=== PATIENT | female | born 1950 | race Caucasian/White ===

== ENCOUNTER → 2016-06-16 13:46 | Outpatient (CLI) | payer MEDICARE, BC | END | disposition home or self-care (01) | LOC: D.US 13:46 → D.RAD 14:30 | DX: K21.9 Gastro-esophageal reflux disease without esophagitis (principal) ==

== ENCOUNTER → 2016-06-23 09:44 | Outpatient (CLI) | payer MEDICARE, BC ==
[2016-06-23 11:21] LABS: HEMATOCRIT 35.9 % (36.0-48.0)
== END | disposition home or self-care (01) ==
LOC: D.CT 09:44
PROVIDERS: Surgery
DX: K21.9 Gastro-esophageal reflux disease without esophagitis (principal); R10.9 Unspecified abdominal pain

== ENCOUNTER → 2016-07-05 09:56 | Outpatient (CLI) | payer MEDICARE, BC | END | disposition home or self-care (01) | LOC: D.MRI 09:56 | DX: K44.9 Diaphragmatic hernia without obstruction or gangrene (principal); R10.9 Unspecified abdominal pain ==

== ENCOUNTER 2016-08-02 05:35 | Inpatient (IN) | payer MEDICARE, BC ==
[2016-08-01 12:06] LABS: BASOPHILS 0.5 % (0-2); EOSINOPHILS 0.8 % (0-7); HEMOGLOBIN 12.5 g/dL (12-16); IMMATURE GRANULOCYTES 0.2 % (0-5); LYMPHOCYTES 18.5 % (15-50); MCH 27.2 pg (26.0-34.0); MCHC 32.1 g/dL (31.0-37.0); MEAN PLATELET VOLUME 10.4 fL (7.4-10.4); MONOCYTES 6.7 % (2-11); NEUTROPHILS 73.3 % (40-80); PLATELET COUNT 216 10x3/uL (130-400); RBC 4.59 10x6/uL (4.00-5.40); RDW 16.6 % (11.5-14.5)
[2016-08-01 12:18] LABS: APTT 25.9 SECONDS (22.8-39.4); INR 0.99 (0.85-1.17); PROTIME 12.9 SECONDS (11.6-15.0)
[2016-08-01 12:31] LABS: ANION GAP 10.6 mmol/L (8-16); CALCIUM 8.9 mg/dL (8.5-10.1); CARBON DIOXIDE 30.9 mmol/L (21.0-32.0); POTASSIUM - SERUM 4.5 mmol/L (3.5-5.1)
[~2016-08-02] VITALS: Ht 157.5 cm; Wt 68.0 kg
[~2016-08-02 05:35] MED LIST: FERGON 240 MG240 MG PO; MELATONIN5 MG PO; PEPCID40 MG PO; PROTONIX40 MG PO
[2016-08-02 06:26] VITALS: BP 140/75; BMI 27.5
--- NOTE | 2016-08-02 09:27 | NUR ---
THROMBIN LOT [id number] EXP 06/2018 FOR BOTH
[2016-08-02 12:30] VITALS: BP 128/59
--- NOTE | 2016-08-02 12:32 | NUR ---
RECIEVED TOR OOM 2238 PER BED WITH POST OP RECOVERY NURSE VITAL SIGNS STABLE FENTNYL EPIDURAL IN PLACE 8MCG/HR CONTINUOUUS INFUSION. DRESSING TO SURGICAL INCISION ONPLACE WITH SCANT AMOUNT OF BLOODY DRAINAGE NOTED NGT TO LEFT NARE TO LIWS. SCANT AMOUNT OF FLUID IN TUBING. MAZA CATHETER PATENT TO CLEAR YELLOW URINE TO GRAVITY FLOW. PT ON CONTINUOUS O2 MONITOR. WILL MONITOR CLOSELY
[2016-08-02 16:16] VITALS: BP 155/72; BMI 27.5
--- NOTE | 2016-08-02 18:00 | NUR ---
NEW ORDER RECIEVED FOR DILAYILAUDID LIQUOR RECTIFIER INITIATED WITH [address]NESS PER ORDER [address] ART. CALLED HOUSE SUPERVISIOR FOR ECO2 MONITOR ATTACHMENT
[2016-08-02 19:00] VITALS: BP 157/74
--- NOTE | 2016-08-02 20:30 | NUR ---
AROUSES TO VERBAL STIMULI. ALERT ORIENTED. NG TO LEFT NARE PATENT TO LOW SUCTION.ABD INCISION INTACT WITHOUT DRAINAGE NOTED.IV TO RIGHT WRIST INTACT WITHOUT REDNESS OR EDEMA NOTED.EPIDURAL AND MANAGER CASH DILAUDID IN USE FOR PAIN CONTROL. CL IN REACH
--- NOTE | 2016-08-03 03:06 | NUR ---
RESTING QUIETLY. NO DISTRESS NOTED.
[2016-08-03 04:00] VITALS: BP 140/73
--- NOTE | 2016-08-03 05:28 | NUR ---
no change in assessment. cl in reach
--- NOTE | 2016-08-03 07:00 | NUR ---
AWAKE AND ALERT WITH RESPRIATIONS EVEN AND NON LABORED. OXYGEN SATURATION 97% ON 2L VIA NC. DENIES NEEDS AT HTIS TIME. WILL CONTINUE WITH PLAN OF CARE.
--- NOTE | 2016-08-03 07:24 | NUR ---
Patient Name: ESAU ALCANTARA Admission Status: Elective Accout number: [id number] Admission Date: 08-02-2016 : 1950 Admission Diagnosis: Attending: ZARI Current LOS: 1 Anticipated DC Date: 08-05-2016 Planned Disposition: Home Primary Insurance: MEDICARE A & B Discharge Planning Comments: CM MET WITH PATIENT AND SPOUSE (DARRELL) REGARDING D/C NEEDS AND PLANS. PATIENT STATED HER SPOUSE WILL DRIVE HER HOME AT DISCHARGE AND THERE ARE NO STEPS TO ENTER HOME AND NO STAIRS INSIDE. PATIENT STATED SHE IS INDEPENDENT WITH HER CARE AND HAS NO DME AT HOME. PATIENTS PCP IS DR. SUNSHINE AND USES [facility] IN [place]. PATIENT HAS NOT HAD HOME HEALTH AND DOES NOT WANT IT. CM WILL CONTINUE TO FOLLOW PATIENT WITH D/C NEEDS AND PLANS. PCP [facility]- [phone] DARRELL (SPOUSE) [phone] Ribbon Cutter: Deana Tobin Is the patient Alert and Oriented? Yes 0 * How many steps to enter\exit or inside your home? 0 0 * PCP DR. SUNSHINE 0 * [facility]acy [facility] * Preadmission Environment Home with Family 0 * ADLs Independent 0 * Equipment None 0 * List name and contact numbers for known caregivers / representatives who currently or will assist patient after discharge: DARRELL (SPOUSE) [phone] 0 * Community resources currently utilized None 0 * Additional services required to return to the preadmission environment? Yes 0 * Can the patient safely return to the preadmission environment? Yes 0 * Has this patient been hospitalized within the prior 30 days at any hospital? No 0 Grand Total: 0
[2016-08-03 07:57] VITALS: BP 149/71
--- NOTE | 2016-08-03 09:32 | NUR ---
SCHEDULED MEDICATIONS ADMINISTERED AT THIS TIME. IV TO RIGHT HAND PATENT. DRESSING TO MIDLINE UPPER ABDOMEN INTACT. EPIDURAL PATENT AND POLYSOM TECH IN USE FOR PAIN. PT IS ABLE TO MOVE AND FEEL IN LOWER EXTREMETIES, BUT PAIN IS TOLERABLE. SCD'S ON AND IN WORKING ORDER. MAZA PATENT AND DRAINING TO GRAVITY. OXYGEN ON 2L VIA NC WITH OXYGEN SATURATION 97%. DENIES NEEDS AT THIS TIME. NG TUBE PATENT WITH DARK BROWN/RED DRAINAGE TO LOW INTERMITTENT WALL SUCTION. WILL CONTINUE WITH PLAN OF CARE. SPOUSE AT BEDSIDE.
--- NOTE | 2016-08-03 10:00 | NUR ---
TAKEN FOR GASTROGRAF AT THIS TIME. NG TUBE CLAMPED. WILL MONITOR PT WHEN SHE RETURNS TO ROOM 2238.
[2016-08-03 11:51] VITALS: BP 134/68
--- NOTE | 2016-08-03 12:16 | NUR ---
NUTRITION MONITORING & EVAL RECEIVED CONSULT FOR [employer], an [employer]/LITERATURE FOR PT. PT EATING ICE CHIPS, SPOUSE AT BEDSIDE. DISCOURAGED STRAWS/CARBONATED DRINKS. ENCOURAGED PT TO READ GUIDELINES AND COMPLY. PT VOICED UNDERSTANDING. RD FOLLOWING
[2016-08-03 15:37] VITALS: BP 126/60
[2016-08-03 19:00] VITALS: BP 139/64
--- NOTE | 2016-08-03 20:45 | NUR ---
AWAKE,ALERT. NO COMPALINTS VOICED.EPIDUAL INTACT FOR PAIN CONTROL.AUTO HAULAWAY DRIVER DILAUDID IN USE. IV INFUSING TO RIGHT ARM WIHTOUT REDNESS OR EDEMA..MIDLINE ABD DRESSING INTACT WITHOUT DRAINAGE NOTED. MAZA PATENT AND DRAINING MICHAEL URINE. CL IN REACH
--- NOTE | 2016-08-04 01:26 | NUR ---
RESTING WITH EYES CLOSED, NO DISTRESS NOTED, FALL PRECAUTIONS IN PLACE, CL IN REACH
[2016-08-04 04:00] VITALS: BP 135/59
--- NOTE | 2016-08-04 07:30 | NUR ---
AWAKE AND ALERT AT THIS TIME. PAIN 5/10. BULLET LUBRICATING MACHINE OPERATOR AND EPIDURAL IN USE FOR PAIN MANAGEMENT. INCENTIVE SPIROMETER IN USE. BOWEL SOUNDS HYPOACTIVE X4. DRESSING C/D/I. SCD'S ON AND IN WORKING ORDER. CALL LIGHT IN REACH, WILL CONTINUE WITH PLAN OF CARE.
[2016-08-04 08:04] VITALS: BP 146/64
--- NOTE | 2016-08-04 10:40 | NUR ---
IV ACCESS-20 GAUGE INSERTED IN RIGHT HAND. PREVIOUS IV REMOVED WITH CATH INTACT DUE TO SITE LEAKING. JON MORIN RN
--- NOTE | 2016-08-04 10:55 | NUR ---
UP TO THE CHAIR WITH PHYSICAL THERAPY ASSISTANCE AT THIS TIME. DR GELLER IN ROOM D/C EPIDURAL. OXYGEN, ETCO2 AND CONTINUOUS PULSE OX D/C WELL. NOTIFIED PHARMACY THAT EPIDURAL WAS D/C SO THAT LOVENOX COULD BE RESTARTED WHEN APPROPRIATE. OXYGEN SATURATION 98% ON ROOM AIR. QUARTER SUPERVISOR IN USE FOR PAIN CONTROL. PERSONAL BELONGINGS IN REACH. AT BEDSIDE. WILL CONTINUE WITH PLAN OF CARE.
--- NOTE | 2016-08-04 11:30 | NUR ---
BATH PROVIDED WITH MODERATE ASSISTANCE WHILE PT UP IN CHAIR. MAZA CARE PROVIDED WELL AND STAT LOCK REPLACED. REMAINS UP IN CHAIR AT THIS TIME WITH BATTERY REPAIRER IN USE. ASSISTED PT WITH BRUSHING TEETH, DEODORANT, AND NON WASH HAIR CAP. DENIES FURTHER NEEDS, REMAINS IN CHAIR. CALL LIGHT IN REACH. WILL CONTINUE WITH PLAN OF CARE.
[2016-08-04 12:08] LABS: BASOPHILS 0.1 % (0-2); EOSINOPHILS 0.3 % (0-7); HEMATOCRIT 31.7 % (36.0-48.0); HEMOGLOBIN 9.8 g/dL (12-16); IMMATURE GRANULOCYTES 0.1 % (0-5); LYMPHOCYTES 13.4 % (15-50); MCH 26.8 pg (26.0-34.0); MCHC 30.9 g/dL (31.0-37.0); MCV 86.6 fL (80.0-100.0); MEAN PLATELET VOLUME 10.6 fL (7.4-10.4); MONOCYTES 8.8 % (2-11); NEUTROPHILS 77.3 % (40-80); PLATELET COUNT 178 10x3/uL (130-400); RBC 3.66 10x6/uL (4.00-5.40); WBC 7.9 10x3/uL (4.8-10.8)
[2016-08-04 12:15] LABS: ALBUMIN 2.5 g/dL (3.4-5.0); ALKALINE PHOSPHATASE 47 U/L (46-116); ALT (SGPT) 51 U/L (10-68); CALC OSMOLALITY 275 mosm/kg (275-300); CALCIUM 8.1 mg/dL (8.5-10.1); CARBON DIOXIDE 31.1 mmol/L (21.0-32.0); CHLORIDE - SERUM 103 mmol/L (98-107); CREATININE - SERUM 0.8 mg/dL (0.6-1.3); GLUCOSE 88 mg/dL (74-106); MAGNESIUM - SERUM 1.7 mg/dL (1.8-2.4); PHOSPHOROUS 2.6 mg/dL (2.5-4.9); POTASSIUM - SERUM 3.7 mmol/L (3.5-5.1); PROTEIN - SERUM 5.7 g/dL (6.4-8.2); SODIUM 139 mmol/L (136-145); UREA NITROGEN 10 mg/dL (7-18); eGFR NON AFRICAN AMERICAN 76 mL/min (90-120)
[2016-08-04 12:26] VITALS: BP 136/68
--- NOTE | 2016-08-04 12:45 | NUR ---
ASSISTED PT BACK TO BED AT THIS TIME X2 ASSIST. MAZA REMAINS PATENT AND DRAINING TO GRAVITY. HOTEL MAINTENANCE ENGINEER IN USE FOR PAIN. AT BEDSIDE. WILL CONTINUE WITH PLAN OF CARE.
--- NOTE | 2016-08-04 13:00 | OP ---
PATIENT NAME: ESAU PICKARD MEDICAL RECORD: [id number] :[birth year] LOCATION:[id number] ADMISSION DATE:08/02/16 SURGEON: ROSA KURTZ MD DATE OF OPERATION: 08/02/2016 REFERRING PHYSICIAN: Dr. Jazmine Lancaster of [employer] and Dr. Ronak Olivia of [facility]. PREOPERATIVE DIAGNOSIS: Large paraesophageal hernia causing obstructive symptoms and gastric ulcerations and hemangioma of the liver and cholelithiasis with chronic cholecystitis. POSTOPERATIVE DIAGNOSIS: Large paraesophageal hernia causing obstructive symptoms and gastric ulcerations and hemangioma of the liver and cholelithiasis with chronic cholecystitis. 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 SURGEON: Rosa Kurtz MD ANESTHESIA: Per DATA WAREHOUSE MANAGER, epidural for intraoperative and postoperative care and postoperative pain relief and general endotracheal anesthesia. PREOPERATIVE NOTE: Ms. Pickard is a very nice 66-year-old white female who has a symptomatic paraesophageal hernia and has had problems with gastric ulcerations and GI bleeding and iron deficiency anemia. Her ulcers are believed to be healed at the present time and she is brought to the operating room to be admitted today for an open repair of paraesophageal hernia. She was found on her preoperative workup to have cholelithiasis and believed to have chronic cholecystitis and as a result. 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 She has had prior surgery, a small bowel resection for what proved to be Crohn's disease a number of years ago and has a well-healed lower midline abdominal incision. PROCEDURE IN DETAIL: Under general endotracheal anesthesia with an epidural for intraoperative and postoperative narcotic administration, the patient was prepped and draped in supine position. The Stauffer catheter was utilized. A midline incision was made and hemostasis obtained with electrocautery. Intra-abdominal enterolysis was performed and a Bookwalter retractor was used for exposure. The patient was found to have a tumor on the inferior aspect of the lateral segment of the left lobe of the liver, which obstructed the view of the esophageal hiatus and so we went on to resect the liver lesion. This was done with Harmonic scalpel with a few clips and Vicryl ligatures and 2-0 Nurolon sutures and 2-0 Vicryl sutures used for hemostasis. The tumor was removed in toto though with the narrow margin, it was sent to pathology for permanent section histology. The stomach was then reduced by traction and the peritoneum and gastrophrenic ligament was divided with the harmonic kentrell. The sac was reduced from the mediastinum and resected and the right and left radha of the diaphragm clearly defined and the anterior and posterior vagus nerve trunks were identified. A clear space posterior to the esophagus was created through which to pass the Roger wrap and a Cayuta drain was used to retract through that OPERATIVE REPORT [id number] ESAU PICKARD. During the dissection, a splenic capsular avulsion occurred and hemostasis was obtained there with the use of dry gauze packing and topical Fibrillar hemostatic oxidized cellulose and the use of thrombin. The greater curvature of the stomach was completely mobilized using the Harmonic scalpel and I was able to demonstrate a loose and floppy wrap could be made around posterior to the esophagus and posterior to the posterior vagus nerve. I performed the crural repair at this point, approximating the right and left radha with interrupted simple 0 Nurolon sutures and then reinforced the closure with a Bantam Bio-A absorbable prosthetic mesh. This reinforced the posterior crural closure and came up around the sides of the esophagus leaving the anterior one-fourth of the circumference of the esophagus open on that aspect of the diaphragm. The fundoplication was then performed after a 40-Angolan bougie was inserted per os and advanced easily into the stomach. I performed the fundoplication over this bougie and demonstrated a loose and floppy wrap. I sutured the stomach to stomach and is fundus to fundus with interrupted simple full thickness 0 Nurolon sutures. The lowest of the 3 stitches used incorporated some anterior muscular wall of the underlying esophagus. I was careful to be sure that the wrap was around the esophagus and not around the stomach. The bougie and Shanna drain were removed and the field irrigated and hemostasis found to be adequate. The spleen was inspected and hemostasis found to be good there. I then sutured the fundic wrap to the diaphragm with 2 interrupted simple 2-0 Vicryl sutures. I then went on to the cholecystectomy. The gallbladder was retracted cephalad and dissection in the hepatoduodenal ligament exposed the neck of the gallbladder and the cystic duct and its junction with the common bile duct and above that, the confluence of the right and left hepatic ducts to form the common bile duct. The cystic duct was closed with a Hemoclip and then incised and a cholangiocatheter flushed first with saline, was inserted into the cystic duct and held in place with a Hemoclip. At that point, Real time digital C-arm fluoroscopy with digital subtraction was used to perform the intraoperative cholangiogram. This study revealed right and left hepatic ducts and small intrahepatic ducts and common bile duct with free flow of contrast into the duodenum without any evidence of any obstructing or irregular lesions. There was filling of a portion of the pancreatic duct through a common channel. I then removed the cystic duct catheter and closed the duct with 2 Hemoclips and divided it. The cystic artery was identified and divided between Hemoclips and the gallbladder detached from the liver with harmonic kentrell dissection. Hemostasis was obtained with minimal additional electrocautery. The gallbladder was removed from the field and opened and noted to contain several small stones and 1 stone as the size of a black olive. The gallbladder and its contents were then sent to pathology for routine study. Hemostasis was found to be adequate in the right and left upper quadrants. No drain was necessary. I closed the abdominal incision with running looped 0 PDS. The skin was closed with sergio after irrigating the subcutaneous tissues with Ancef and gentamicin solution. The patient did receive 1 gram of Ancef IV immediately preop and will be continued on Ancef q.6 hours for 24 hours postop. Blood loss during the operation was about 200 cc, none was replaced intraoperatively. All sponges, instruments and needles were accounted for. No drain was used and the surgical specimens consisted of the resected liver lesion and the gallbladder and its contents. OPERATIVE REPORT [id number] ESAU PICKARD The patient was then awakened and extubated and nasogastric tube having been inserted first and taken to the recovery room. We will leave her Stauffer catheter in overnight and leave her NG to a low intermittent suction overnight. Tomorrow morning, we will do a Gastrografin swallow to demonstrate if there are no leaks and no obstruction and if that is the case and she has not developed serious ileus, we will remove her NG tube and start a clear liquid diet. I also plan to remove her Stauffer catheter tomorrow. Hopefully, she will be ready for discharge to home on or perhaps Monday of this week. We will continue to use her epidural for postoperative pain management and as well, we will use IV Toradol for breakthrough pain. TRANSINT:[id number] Voice Confirmation ID: [id number] DOCUMENT ID: [id number] ROSA KURTZ MD at 1300 CC: [id number] DICTATION DATE: 08/02/16 1150 SENIOR PRODUCT DEVELOPMENT SCIENTIST: 08/02/16 2305 ADM IN [place] [id number] [place] [id number]
[2016-08-04 15:47] VITALS: BP 104/61
--- NOTE | 2016-08-04 18:45 | NUR ---
MAZA D/C WITH CATH TIP INTACT PER ORDER.
[2016-08-04 20:00] VITALS: BP 120/80
[2016-08-05] VITALS: BP 136/60
--- NOTE | 2016-08-05 03:37 | NUR ---
ASSESSED AT THE BEGINNING OF THE SHIFT. PT IS ALERT AND ORIENTED, ABLE TO VERBALIZE NEEDS. SHE HAS A SMALL MIDLINE INCISION AND IT IS CLEAN AND DRY WITH A ABD BINDER OVER IT. THERE ARE SCD'S IN PLACE AND SHE HAS O2 AT [address] WE HAVE ASSISTED HER UP TO THE BATHROOM TO VOID AND SHE DID WELL. THERE IS A DILAUDID MACHINE OPERATOR FARMWORKER FOR PAIN CONTROL AND IT IS KEEPING HER COMFORTABLE. THE BED IS LOW, RAILS UP X'S 2 WITH THE CALL LIGHT AT HAND.
[2016-08-05 04:00] VITALS: BP 95/62
[2016-08-05 07:52] VITALS: BP 114/59
[2016-08-05 11:21] LABS: BASOPHILS 0.1 % (0-2); EOSINOPHILS 0.4 % (0-7); HEMATOCRIT 28.1 % (36.0-48.0); HEMOGLOBIN 8.7 g/dL (12-16); IMMATURE GRANULOCYTES 0.3 % (0-5); LYMPHOCYTES 9.8 % (15-50); MCH 26.9 pg (26.0-34.0); MCV 86.7 fL (80.0-100.0); MEAN PLATELET VOLUME 10.5 fL (7.4-10.4); MONOCYTES 6.8 % (2-11); NEUTROPHILS 82.6 % (40-80); PLATELET COUNT 152 10x3/uL (130-400); RBC 3.24 10x6/uL (4.00-5.40); RDW 16.5 % (11.5-14.5); WBC 6.7 10x3/uL (4.8-10.8)
[2016-08-05 11:33] LABS: CALC OSMOLALITY 272 mosm/kg (275-300); CALCIUM 7.7 mg/dL (8.5-10.1); CARBON DIOXIDE 27.5 mmol/L (21.0-32.0); CHLORIDE - SERUM 104 mmol/L (98-107); CREATININE - SERUM 0.6 mg/dL (0.6-1.3); GLUCOSE 84 mg/dL (74-106); MAGNESIUM - SERUM 1.5 mg/dL (1.8-2.4); PHOSPHOROUS 2.5 mg/dL (2.5-4.9); POTASSIUM - SERUM 3.9 mmol/L (3.5-5.1); SODIUM 138 mmol/L (136-145); UREA NITROGEN 8 mg/dL (7-18); eGFR NON AFRICAN AMERICAN > 90 mL/min (90-120)
[2016-08-05 12:03] VITALS: BP 122/60
[2016-08-05 13:44] VITALS: Ht 157.5 cm; Wt 68.0 kg
[2016-08-05 16:10] VITALS: BP 128/56
[2016-08-05 20:00] VITALS: BP 150/71
[2016-08-06] VITALS: BP 120/53
[2016-08-06 04:00] VITALS: BP 126/59
--- NOTE | 2016-08-06 08:07 | NUR ---
PT AOX4 RESP EVEN AND NONLABORED PT DENIES NEEDS AT THIS TIME IV TO RIGHT HAND PATENT AND INTACT SRX2 BED AT LOWEST SETTING CALL LIGHT WITHIN REACH WILL CONTINUE TO MONITOR LEFT FOOT ELEVATED AND CAPILLARY REFILL TO TOES <3 SEC AT THIS TIME
[2016-08-06 10:08] VITALS: BP 138/57
[2016-08-06 13:13] VITALS: BP 151/69
[2016-08-06] MEDS ORDERED: HYDROCODON-ACE1 EAC7 PO (13:28)
--- NOTE | 2016-08-06 17:01 | NUR ---
IV DISCONTINUED WITHOUT DIFFICULTY AT THIS TIME PT GIVEN DISCHARGE INSTRUCTIONS AND ONE PRESCRIPTION AT THIS TIME
--- NOTE | 2016-08-06 17:13 | NUR ---
PT TAKEN TO HOSPITAL EXIT VIA WHEELCHAIR AT THIS TIME PT LEFT VIA PRIVATE VEHICLE AT THIS TIME
== END 2016-08-06 17:17 | disposition home or self-care (01) | DRG 327 ==
LOC: D.OPS 05:35 → D.PAN 07:30 → D.MS 11:29 → D.OPS 11:30 → D.MS 21:38
PROVIDERS: ADMIT Surgery
PROC: 0DV40ZZ Restriction of Esophagogastric Junction, Open Approach (ICD-10-PCS; 2016-08-02)
PROC: 0FT40ZZ Resection of Gallbladder, Open Approach (ICD-10-PCS; 2016-08-02)
PROC: 0FB20ZZ Excision of Left Lobe Liver, Open Approach (ICD-10-PCS; 2016-08-02)
PROC: BF141ZZ Fluoroscopy of Gallbladder, Bile Ducts and Pancreatic Ducts using Low Osmolar Contrast (ICD-10-PCS; 2016-08-02)
PROC: [UNRECOGNIZED PROCEDURE] (principal; 2016-08-02 08:00)
PROC: [UNRECOGNIZED PROCEDURE] (2016-08-02 08:00)
DX: K44.1 Diaphragmatic hernia with gangrene (principal); K80.10 Calculus of gallbladder with chronic cholecystitis without obstruction; D62 Acute posthemorrhagic anemia; K21.9 Gastro-esophageal reflux disease without esophagitis; K25.9 Gastric ulcer, unspecified as acute or chronic, without hemorrhage or perforation; D18.03 Hemangioma of intra-abdominal structures; D53.9 Nutritional anemia, unspecified